=== PATIENT | male | born 1990 | race African-American/Black ===

== ENCOUNTER 2016-05-26 22:33 | Emergency (ER) | payer SELFPAY ==
[~2016-05-26] VITALS: Ht 170.2 cm; Wt 73.0 kg
[2016-05-26 22:39] VITALS: BP 148/92
== END 2016-05-26 22:55 | disposition home or self-care (01) ==
LOC: ER 22:35
DX: T50.991A Poisoning by other drugs, medicaments and biological substances, accidental (unintentional), initial encounter (principal); F17.200 Nicotine dependence, unspecified, uncomplicated; F19.10 Other psychoactive substance abuse, uncomplicated; Y92.89 Other specified places as the place of occurrence of the external cause
CPT/HCPCS: 99283